=== PATIENT | female | born 1990 ===

== ENCOUNTER 2017-08-25 14:54 | Emergency (ER) | payer OTHER ==
[2017-08-25 15:40] VITALS: RESP 18; TEMP 98.6
--- NOTE | 2017-08-25 17:54 | ED PDOC ---
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 As of yesterday, the freelance interpreter/translator said the patient noticed a "little ball" on her left side that feels "as if it is going to explode" and is very painful. Denies any urinary symptoms, hematuria , and has no history of abdominal pain. PMD: provider located outside of [place] Past Medical History Reviewed: Historical Data, Nursing Documentation, Vital Signs Vital Signs: Last Vital Signs Temp 98.6 F 08/25/17 15:35 Pulse 77 08/25/17 20:15 Resp 18 08/25/17 20:15 BP 102/56 L 08/25/17 20:15 Pulse Ox 99 08/25/17 20:41 - Medical History PMH: Cardia Arrhythmia - Surgical History Surgical History: No Surg Hx - Family History Family History: States: Unknown Family Hx - Social History Current smoker - smoking cessation education provided: No Alcohol: None Drugs: Denies - Allergies Allergies/Adverse Reactions: Allergies Allergy/AdvReac Type Severity Reaction Status Date / Time No Known Allergies Allergy Verified 08/25/17 17:10 Review of Systems ROS Statement: Except As Marked, All Systems Reviewed And Found Negative Gastrointestinal: Positive for: Abdominal Pain (left sided, feels as if theres a "little ball that is going to explode") Genitourinary Female: Negative for: Dysuria, Frequency, Incontinence, Hematuria Physical Exam - Reviewed Nursing Documentation Reviewed: Yes Vital Signs Reviewed: Yes - Physical Exam Appears: Positive for: Well, Non-toxic, No Acute Distress Head Exam: Positive for: ATRAUMATIC, NORMOCEPHALIC Skin: Positive for: Normal Color, Warm, Dry Eye Exam: Positive for: Normal appearance Cardiovascular/Chest: Positive for: Regular Rate, Rhythm Gastrointestinal/Abdominal: Positive for: Normal Exam, Soft. Negative for: Tenderness Back: Positive for: L CVA Tenderness. Negative for: R CVA Tenderness Neurologic/Psych: Positive for: Alert, Oriented (x3) - Laboratory Results Result Diagrams: 08/25/17 18:18 08/25/17 18:18 - ECG O2 Sat by Pulse Oximetry: 99 (RA) Pulse Ox Interpretation: Normal Medical Decision Making Medical Decision Making: Time: 18:03 Initial Plan: --CT Abd/ Pelvis w/o contrast --CMP --Lipase --CBC with differential --Urinalysis Time: 19:30 CT Abd/Pelvis w/o contrast FINDINGS: LUNG BASES: Unremarkable. ABDOMEN: LIVER: Unremarkable. GALLBLADDER AND BILE DUCTS: Unremarkable. No calcified stones. No ductal dilation. PANCREAS: Unremarkable. No ductal dilation. SPLEEN: Unremarkable. No splenomegaly. ADRENALS: Unremarkable. No mass. KIDNEYS AND URETERS: Nonobstructing left renal calculi. STOMACH AND BOWEL: Unremarkable. No obstruction. No mucosal thickening. PELVIS: APPENDIX: No findings to suggest acute appendicitis. BLADDER: Unremarkable. No stones. REPRODUCTIVE: Unremarkable as visualized. ABDOMEN and PELVIS: INTRAPERITONEAL SPACE: Unremarkable. No free air. No significant fluid collection. BONES/JOINTS: No acute fracture. SOFT TISSUES: Unremarkable. VASCULATURE: Unremarkable. No abdominal aortic aneurysm. LYMPH NODES: Unremarkable. No enlarged lymph nodes. IMPRESSION: Nonobstructing left renal calculi. Scribe Attestation: Documented by Aliza Garduno, acting as a scribe for Sherif Sandy PA-C. Provider Scribe Attestation: All medical record entries made by the Scribe were at my direction and personally dictated by me. I have reviewed the chart and agree that the record accurately reflects my personal performance of the history, physical exam, medical decision making, and the department course for this patient. I have also personally directed, reviewed, and agree with the discharge instructions and disposition. Disposition - Clinical Impression Clinical Impression: Ovarian cyst - Patient ED Disposition Is Patient to be Admitted: No Doctor Will See Patient In The: Office Counseled Patient/Family Regarding: Diagnosis, Need For Followup - Disposition [facility] [Outside] Disposition: Routine/Home Disposition Time: 20:40 Condition: STABLE Instructions: Ovarian Cysts, Ovarian Cyst (DC), Ovarian Cyst Removal (DC) Forms: [employer] (Macedonian) Print Language: CITIZEN OF [place]
[2017-08-25 18:23] LABS: BASO # 0.1 K/uL (0.0-0.2); BASO % 0.6 % (0.0-2.0); EOS # 0.1 K/uL (0.0-0.7); HEMOGLOBIN 14.1 g/dL (12.0-16.0); LYMPH # 2.1 K/uL (1.0-4.3); LYMPH % 24.4 % (20.0-40.0); MEAN CELL VOLUME 88.3 fl (81.0-99.0); MEAN CORPUSCULAR HEMOGLOBIN 31.4 pg (27.0-31.0); MEAN CORPUSCULAR HGB CONC 35.5 g/dL (33.0-37.0); MEAN PLATELET VOLUME 8.4 fl (7.2-11.7); MONO # 0.6 K/uL (0.0-0.8); MONO % 6.6 % (0.0-10.0); NEUT # 5.7 K/uL (1.8-7.0); NEUT % 67.4 % (50.0-75.0); NRBC % 0.1 % (0.0-0.0); RBC 4.5 Mil/uL (3.80-5.20); RED CELL DISTRIBUTION WIDTH 12.2 % (11.5-14.5); WHITE BLOOD COUNT 8.5 K/uL (4.8-10.8)
[2017-08-25 18:36] LABS: ALB/GLOB RATIO 1.3 (1.0-2.1); ALBUMIN 4.3 g/dL (3.5-5.0); ALT/SGPT 23 U/L (9-52); AST/SGOT 23 U/L (14-36); BLOOD UREA NITROGEN 14 mg/dl (7-17); CALCIUM 9.6 mg/dL (8.4-10.2); GFR AFRICAN-AMERICAN > 60; GFR NON-AFRICAN AMERICAN > 60; LIPASE 209 U/L (23-300)
[2017-08-25 18:46] LABS: SQUAMOUS EPITHIAL 1 /hpf (0-5); URINE BACTERIA RARE (<OCC); URINE BILIRUBIN NEGATIVE (NEGATIVE); URINE BLOOD SMALL (NEGATIVE); URINE CLARITY SLIGHTY-CLOUDY (Clear); URINE COLOR YELLOW (YELLOW); URINE GLUCOSE (UA) NEG (Normal); URINE LEUKOCYTE ESTERASE TRACE Leu/uL (Negative); URINE PROTEIN NEGATIVE (NEGATIVE); URINE UROBILINOGEN 0.2-1.0 mg/dL (0.2-1.0)
[2017-08-25] MEDS ORDERED: Sodium Chloride 0.9% 100 ML ONE (18:51)
[2017-08-25] MEDS ORDERED: Iohexol 300 100 ML IJ ONE (18:51)
[2017-08-25 20:15] VITALS: BP 102/56; PULSE 77
[2017-08-25 20:26] VITALS: O2SAT 99
--- NOTE | 2017-08-26 10:24 | CT ---
PROCEDURE: CT Abdomen and Pelvis with contrast HISTORY: LUQ pain COMPARISON: None. TECHNIQUE: Contrast dose: Omnipaque 300, 100 cc Radiation dose: Total exam DLP = 201.51 mGy-cm. This CT exam was performed using one or more of the following dose reduction techniques: Automated exposure control, adjustment of the mA and/or kV according to patient size, and/or use of iterative reconstruction technique. FINDINGS: LOWER THORAX: A small calcified granuloma seen the right middle lobe base. Lung bases are otherwise unremarkable bilaterally. LIVER: Unremarkable. No gross lesion or ductal dilatation. GALLBLADDER AND BILE DUCTS: Unremarkable. PANCREAS: Unremarkable. No gross lesion or ductal dilatation. SPLEEN: Unremarkable. ADRENALS: Unremarkable. No mass. KIDNEYS AND URETERS: Unremarkable. No hydronephrosis. No solid mass. VASCULATURE: Unremarkable. No aortic aneurysm. BOWEL: The stomach is distended with retained food and fluid. There is no bowel obstruction appreciable. Lack of oral contrast limits evaluation of the bowel however. Moderate retained fecal material scattered throughout the large bowel diffusely. APPENDIX: Normal appendix. PERITONEUM: Unremarkable. No free fluid. No free air. LYMPH NODES: Unremarkable. No enlarged lymph nodes. BLADDER: Urinary bladder is thin walled but distended. REPRODUCTIVE: Endometrium appears prominent versus mild distention from fluid in the endometrial cavity. Collapsing right adnexal cyst is suggested. BONES: No acute fracture. OTHER FINDINGS: None. IMPRESSION: 1. Relatively prominent lucency at the endometrium suggests thickening in the endometrium or possible fluid in the endometrial cavity. Clinically correlate further. Collapsing cyst or follicle is seen at the right ovaries suggestive of recent rupture. No suspicious fluid collection. 2. No bowel obstruction, mesenteric edema, ascites or free intraperitoneal gas. Lack of oral contrast limits evaluation of large bowel. Concordant preliminary report from [facility], 08/25/2017 3:18 p.m..
== END 2017-08-25 21:05 | disposition home or self-care (01) ==
LOC: H.ER 14:54
DX: N83.202 Unspecified ovarian cyst, left side (principal); N20.0 Calculus of kidney
CPT/HCPCS: 74177; 80053; 81003; 81025; 83690; 85025; 99283; Q9967